=== PATIENT | female | born 1945 | race Caucasian/White ===

== ENCOUNTER → 2017-03-09 09:28 | Outpatient (CLI) | payer MEDICARE, OTHER ==
[2017-03-09 17:23] LABS: ALBUMIN 3.7 g/dL (3.4-5.0); BILIRUBIN - DIRECT 0.08 mg/dL (0.00-0.30); BILIRUBIN - INDIRECT 0.32 mg/dL (0.00-1.00); BILIRUBIN - TOTAL 0.4 mg/dL (0.2-1.3); CHOL - HDL RATIO 2.7 ratio (2.3-4.1); LDL-HDL RATIO 1.4 ratio (1.5-3.5); PROTEIN - SERUM 7.1 g/dL (6.4-8.2)
== END | disposition home or self-care (01) ==
LOC: D.ECHO 09:28
PROVIDERS: Internal Medicine Cardiovascular Disease
DX: R07.9 Chest pain, unspecified (principal)